=== PATIENT | female | born 1925 | race Caucasian/White ===

== ENCOUNTER 2016-04-02 15:14 | Emergency (ER) | payer OTHER, BC, MEDICARE ==
[~2016-04-02] VITALS: Ht 167.6 cm; Wt 74.8 kg
--- NOTE | 2016-04-02 16:54 | ED GENERAL ADULT ---
History of Present Illness General Chief Complaint: General Adult Stated Complaint: BP 207/78 SENT IN BY ENT Source: patient, family (DAUGHTER) Exam Limitations: no limitations Vital Signs & Intake/Output Vital Signs & Intake/Output Vital Signs Date Time Temp Pulse Resp B/P Pulse O2 O2 Flow FiO2 Ox Delivery Rate 04/02 2005 97.0 60 22 161/70 98 Room Air 04/02 1753 97.8 57 18 170/74 04/02 1750 170/74 ED Intake and Output 04/03 0000 04/02 1200 Intake Total Output Total Balance Patient 165 lb Weight Allergies Coded Allergies: No Known Allergies (04/02/16) Reconcile Medications Metoprolol Succinate 25 MG TAB 1 TAB PO DAILY HTN (Reported) Olmesartan Medoxomil (Benicar) 20 MG TABLET 1 TAB PO DAILY HTN (Reported) Triage Note: PT WAS REFERED TO THE ED FOR EVALUATION OF HYPERTENSION. SHE WAS BEING EVALUATED AT HER ENT FOR A FOLLOW UP WHEN THEY NOTED THE ELEVATED BP. Triage Nurses Notes Reviewed? yes HPI: Patient is an 82-year-old female referred to the emergency department by her ear nose and throat doctor for evaluation of elevated blood pressure. Patient was at a follow-up exam for a history of chronic tinnitus and dizziness when her blood pressure was noted to be between 200 and 210 systolic. Patient takes Benicar and metoprolol once a day for her hypertension. Patient last saw her plaster foreman approximately 2 weeks ago and reports that her blood pressure was in the 140s systolic. Patient reports that she has been compliant with her blood pressure medication regimen. Currently has mild tinnitus and had pressure which is consistent with her chronic symptoms, no change today. Patient denies blurred vision, numbness, weakness, chest pain, palpitations, dyspnea. Patient also complaining of right lower extremity pain and swelling. Patient fell approximately 7 months ago and has been having pain and swelling since. Pain and swelling primarily to the right knee but radiates from the right knee down to the right ankle both anteriorly and posteriorly. Patient has appointment tomorrow with her primary care doctor, Dr. Silverman for further evaluation of her knee pain and swelling. (MONY BAÑUELOS,ALBERTO) Past History Travel History Traveled to [place] past 21 day No Medical History Any Pertinent Medical History? see below for history Cardiovascular: hypertension, CARDIAC STENTS Gastrointestinal: IBS, SPASTIC COLON, DIVERTICULOSIS Musculoskeletal: ARTHRITIS Influenza Vaccine: 12/11/08 Surgical History Surgical History: non-contributory Psychosocial History Who do you live with Family Services at Home NONE What is your primary language American Tobacco Use: Never used Family History Hx Contributory? No (ALBERTO GALO) Review of Systems Review of Systems Constitutional: Denies: chills, fever. EENTM: Denies: blurred vision, visual changes. Respiratory: Denies: cough, short of breath. Cardiovascular: Denies: chest pain, palpitations, syncope. GI: Denies: abdominal pain, nausea, vomiting. Musculoskeletal: Reports: joint swelling (right knee). Denies: back pain. Skin: Reports: no symptoms. Neurological/Psychological: Reports: headache (mild head pressure). Denies: confusion, numbness. Hematologic/Endocrine: Denies: bruising, bleeding. Immunologic/Allergic: Denies: splenectomy. (ALBERTO GALO) Physical Exam Physical Exam General Appearance: well developed/nourished, alert, awake Head: atraumatic, normal appearance Eyes: Bilateral: normal appearance, PERRL. Ears, Nose, Throat: normal pharynx, normal ENT inspection, hearing grossly normal, normal TM's bilaterally Neck: normal inspection, supple, full range of motion Respiratory: normal breath sounds, no respiratory distress, lungs clear Cardiovascular: regular rate/rhythm (no murmur) Peripheral Pulses: 2+ dorsalis pedis (R), 2+ dorsalis pedis (L) Gastrointestinal: soft, non-tender Back: normal inspection, normal range of motion Extremities: moderate right knee swelling, mild tenderness. 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 Yes ASA ordered for poss ACS? No-ACS ruled out CVA/TIA Diagnosis: No Severe Sepsis Present: No Septic Shock Present: No (ALBERTO GALO) Progress Differential Diagnoses I considered the following diagnoses in my evaluation of the patient: Hypertension, hypertensive crisis, end organ dysfunction, osteoarthritis of the knee, DVT Plan of Care: Laboratory Tests 04/02/16 1741: Anion Gap 11, Estimated GFR > 60, BUN/Creatinine Ratio 15.7, Glucose 92, Calcium 9.5, Total Bilirubin 0.7, AST 23, ALT 32, Alkaline Phosphatase 81, Troponin I < 0.01, Total Protein 7.0, Albumin 4.4, Globulin 2.6, Albumin/Globulin Ratio 1.7, CBC w Diff NO MAN DIFF REQ, RBC 4.73, MCV 84.0, MCH 27.9, RDW 13.1, MPV 8.2, Gran % 64.8, Lymphocytes % 27.5, Monocytes % 6.4, Eosinophils % 0.8, Basophils % 0.5, Absolute Granulocytes 5.3, Absolute Lymphocytes 2.2, Absolute Monocytes 0.5 , Absolute Eosinophils 0.1, Absolute Basophils 0, PUBS MCHC 33.2 Manual blood pressure 170/74. No acute neurologic abnormalities on exam. No signs of end organ dysfunction on exam. 04/02/2016 6:12:18 PM: Discussed with and seen by Dr. Borden. 04/02/2016 6:26:03 PM: Patient resting comfortably. Results of labs and ultrasound discussed with patient. Patient has appointment with her primary doctor tomorrow. (MONY BAÑUELOS,ALBERTO) Diagnostic Imaging: Viewed by Me: Radiology Read, Ultrasound. Discussed w/RAD: Radiology Read, Ultrasound. Radiology Impression: PATIENT: JEFE FULLER PRESENT AGE: 89 PATIENT ACCOUNT NO: [id number] : [birth year] LOCATION: [facility] ORDERING PHYSICIAN: ALBERTO BAÑUELOS SERVICE DATE: 04/02/16 EXAM TYPE: US - US-UNILATERAL VENOUS DOPPLER EXAMINATION: US TRIPLEX LOWER EXTREMITY, RIGHT CLINICAL INFORMATION: Pain. Swelling. COMPARISON: None. TECHNIQUE: Color- flow triplex imaging with spectral analysis and compression Doppler were performed on the right lower extremity. FINDINGS: Respiratory variation, normal compression and augmented flow are noted throughout the lower extremity. The visualized common femoral vein, superficial femoral vein, profunda femoral vein, popliteal vein and midcalf peroneal and posterior tibial venous segments show no evidence of deep venous thrombosis. There is no Nichols's cyst. IMPRESSION: Normal triplex scan without evidence of deep venous thrombosis involving the right lower extremity. DICTATED BY: WESLEY SOLIS MD DATE/TIME DICTATED:04/02/161740 MANAGER EMERGENCY DEPARTMENT:DARYL DATE/TIME TRANSCRIBED:04/02/161740 CONFIDENTIAL, DO NOT COPY WITHOUT APPROPRIATE AUTHORIZATION. <Electronically signed in Other Vendor System> SIGNED BY: WESLEY SOLIS MD 04/02/161744 Initial ED EKG: sinus bradycardia 53 bpm, normal axis, left anterior fascicular block, no acute changes from previous ekg Prior EKG: unchanged (ALBERTO GALO) Departure Departure Time of Disposition: 1856 Disposition: HOME OR SELF CARE Condition: Stable Clinical Impression Primary Impression: Arthritis of knee Secondary Impressions: Hypertension Qualifiers: Hypertension type: essential hypertension Qualified Code: I10 - Essential (primary) hypertension Referrals: DANTE SILVERMAN MD (PCP/Family) Additional Instructions: Follow-up with her primary doctor tomorrow as previous as scheduled. Departure Forms: Customer Survey General Discharge Information (ALBERTO GALO) PA/CONCRETE BATCH PLANT OPERATOR Co-Sign Statement Statement: ED Attending supervision documentation- [x] I saw and evaluated the patient. I have also reviewed all the pertinent lab results and diagnostic results. I agree with the findings and the plan of care as documented in the PA's/CONCRETE BATCH PLANT OPERATOR's documentation. [] I have reviewed the ED Record and agree with the PA's/CONCRETE BATCH PLANT OPERATOR's documentation. [] Additions or exceptions (if any) to the PAs/CONCRETE BATCH PLANT OPERATOR's note and plan are summarized below: [] (PILAR BORDEN DO) Critical Care Note Critical Care Note Critical Care Time: non-applicable (ALBERTO GALO)
--- NOTE | 2016-04-02 17:45 | ULTRASOUND REPORT ---
EXAMINATION: US TRIPLEX LOWER EXTREMITY, RIGHT CLINICAL INFORMATION: Pain. Swelling. COMPARISON: None. TECHNIQUE: Color-flow triplex imaging with spectral analysis and compression Doppler were performed on the right lower extremity. FINDINGS: Respiratory variation, normal compression and augmented flow are noted throughout the lower extremity. The visualized common femoral vein, superficial femoral vein, profunda femoral vein, popliteal vein and midcalf peroneal and posterior tibial venous segments show no evidence of deep venous thrombosis. There is no Nichols's cyst. IMPRESSION: Normal triplex scan without evidence of deep venous thrombosis involving the right lower extremity.
[2016-04-02 17:49] LABS: ABSOLUTE BASOPHIL COUNT 0 /CUMM (0.0-0.2); ABSOLUTE EOSINOPHIL COUNT 0.1 /CUMM (0.0-0.7); ABSOLUTE GRANULOCYTE CT 5.3 /CUMM (1.4-6.5); ABSOLUTE LYMPH COUNT 2.2 /CUMM (1.2-3.4); ABSOLUTE MONOCYTE COUNT 0.5 /CUMM (0.10-0.60); BASOPHIL % 0.5 % (0.0-2.0); EOSINOPHIL % 0.8 % (0-5); GRANULOCYTE % 64.8 % (42.2-75.2); HEMATOCRIT 39.8 % (37-47); MEAN CORPUSCULAR HGB 27.9 PG (27.0-31.0); MEAN CORPUSCULAR HGB CONC 33.2 G/DL (33.0-37.0); MEAN PLATELET VOLUME 8.2 FL (7.4-10.4); PLATELET COUNT 190 /CUMM (130-400); RBC DISTRIBUTION WIDTH 13.1 % (11.5-14.5); RED BLOOD CELL CT 4.73 /CUMM (4.20-5.40); WHITE BLOOD CELL COUNT 8.2 /CUMM (4.8-10.8)
--- NOTE | 2016-04-02 18:46 | RADIOLOGY REPORT ---
EXAMINATION: XR KNEE, RIGHT CLINICAL INFORMATION: Pain and swelling of the knee. COMPARISON: X-rays of the right knee done 06/03/2014. Report only. TECHNIQUE: Four views of the right knee. FINDINGS: Reexamination shows the previously described tricompartmental osteoarthritis. Although this exam was not obtained weightbearing, there is significant narrowing of the lateral compartment. Marginal osteophytes are present. There is no fracture or joint effusion. Arterial vascular calcifications are seen in the popliteal fossa. IMPRESSION: Moderately advanced osteoarthritis.
[2016-04-02] MEDS ORDERED: BENICAR20 M1 PO (20:04)
[2016-04-02] MEDS ORDERED: METOPROLOL SUCC25 M1 PO (20:05)
[2016-04-02 20:06] VITALS: BP 161/70
== END 2016-04-02 18:58 ==
LOC: ERH 15:14
PROVIDERS: Physician Assistant
DX: I10 Essential (primary) hypertension (principal); M17.9 Osteoarthritis of knee, unspecified; M79.661 Pain in right lower leg; M25.561 Pain in right knee; M79.89 Other specified soft tissue disorders
CPT/HCPCS: 73562-RT; 93005; 93010

== ENCOUNTER 2017-06-20 15:42 | Emergency (ER) | payer OTHER, BC, MEDICARE ==
[~2017-06-20] VITALS: Ht 167.6 cm; Wt 70.8 kg
[~2017-06-20 15:42] MED LIST: BENICAR20 M1 PO; METOPROLOL SUCC25 M1 PO
--- NOTE | 2017-06-20 17:26 | CT SCAN REPORT ---
EXAMINATION: CT HEAD WITHOUT CONTRAST CLINICAL INFORMATION: Fall. Head laceration. COMPARISON: CT head 06/26/2011 TECHNIQUE: Contiguous axial imaging was performed from the skull base to vertex without intravenous administration of contrast. Coronal reformatted images performed at the CT scanner DLP: 607.51 mGy-cm FINDINGS: At the anterior falx there is a 5 mm hyperdensity, coronal image 64, axial image 34 (2). This is new since the exam of 06/26/2011. Favor this being a small extra-axial hemorrhage. No additional extra-axial collection, hemorrhage. There is no intracranial hemorrhage. No abnormal mass effect or midline shift is seen. Snow to white matter differentiation is well preserved. There is atrophy with prominence of the ventricles and the sulci and hypodensity of the periventricular white matter due to chronic small vessel ischemic disease. There is vascular calcifications of the internal carotid arteries bilaterally. The osseous structures and soft tissues are normal. The mastoid air cells and visualized portions of the paranasal sinuses are well aerated. IMPRESSION: Small hypodensity associated with the anterior falx new since the exam of 06/26/2011 consistent with a small extra-axial hemorrhage, along the anterior falx. This critical result was discussed with Dr. Sharma on 06/20/2017, 5:20 PM and it was ascertained that the content and urgency of the report was understood at the time of direct communication.
--- NOTE | 2017-06-20 17:49 | ED HEAD/FACIAL INJ COMPLAINT ---
History of Present Illness General Chief Complaint: Laceration Procedure Stated Complaint: LAC TO EYEBROW -LOC S/P FALL Source: patient, family, old records Exam Limitations: no limitations Vital Signs & Intake/Output Vital Signs & Intake/Output Vital Signs Date Time Temp Pulse Resp B/P B/P Pulse O2 O2 Flow FiO2 Mean Ox Delivery Rate 06/21 2127 98.6 58 18 197/79 100 Room Air 06/20 1909 97.8 62 18 159/96 98 Room Air 06/20 1547 97.0 65 20 186/60 99 Room Air Allergies Coded Allergies: No Known Allergies (04/02/16) Reconcile Medications Metoprolol Succinate 25 MG TAB 1 TAB PO DAILY HTN (Reported) Olmesartan Medoxomil (Benicar) 20 MG TABLET 1 TAB PO DAILY HTN (Reported) Triage Note: PT TO ED WITH DAUGHTER FOR LAC ABOVE LEFT EYE. PT HAD A TRIP AND FALL ONTO FACE ON CONCRETE, ABOUT 1340 TODAY. DENIES LOC. TAKES BABY ASA DAILY. UNKNOWN LAST TETANUS SHOT. Triage Nurses Notes Reviewed? yes Onset: Just prior to arrival Severity: moderate Location: frontal Method of Injury: direct blow, fall Loss of Consciousness: no loss of consciousness LMP (ages 10-50): post menopausal : No Patient currently breastfeeds: No HPI: Prior to admission patient slipped in her driveway and fell forward striking her forehead on the ground. She sustained bruising to the left eye and laceration to the left forehead. She denies fever chills nausea vomiting diarrhea abdominal pain chest pain shortness of breath headache dysuria rash change in motor sensory function change in bowel bladder habit loss of consciousness. (Uday Sharma MD) Past History Travel History Traveled to [place] past 21 day No Medical History Any Pertinent Medical History? see below for history Cardiovascular: hypertension, CARDIAC STENTS Gastrointestinal: IBS, SPASTIC COLON, DIVERTICULOSIS Musculoskeletal: ARTHRITIS Surgical History Surgical History: non-contributory Psychosocial History Who do you live with Family Services at Home NONE What is your primary language Finnish Tobacco Use: Never used ETOH Use: denies use Illicit Drug Use: denies illicit drug use Family History Hx Contributory? No (Uday Sharma MD) Review of Systems Review of Systems Constitutional: Reports: no symptoms. EENTM: Reports: no symptoms. Respiratory: Reports: no symptoms. Cardiovascular: Reports: no symptoms. GI: Reports: no symptoms. Genitourinary: Reports: no symptoms. Musculoskeletal: Reports: no symptoms. Skin: Reports: see HPI. Neurological/Psychological: Reports: no symptoms. Hematologic/Endocrine: Reports: no symptoms. Immunologic/Allergic: Reports: no symptoms. All Other Systems: Reviewed and Negative (Uday Sharma MD) Physical Exam Physical Exam General Appearance: well developed/nourished, mild distress Head: active bleeding, evidence of injury, contusions, ecchymosis (left periorbital), lacerations (forehead) Eyes: Bilateral: normal appearance, PERRL, EOMI. Ears, Nose, Throat: normal pharynx, normal ENT inspection, hearing grossly normal Neck: normal inspection, supple, full range of motion, no midline tenderness Respiratory: normal breath sounds, chest non-tender, no respiratory distress, quiet respiration Cardiovascular: regular rate/rhythm, normal peripheral pulses, norml femoral pulses equa Gastrointestinal: normal bowel sounds, soft, non-tender, no organomegaly Back: normal inspection, normal range of motion, no vertebral tenderness Extremities: normal inspection, normal capillary refill, normal range of motion, no edema Psychiatric: awake, alert, oriented x 3 Cranial Nerves: normal hearing, normal speech, PERRL Coordination/Gait: normal finger to nose, normal gait Motor/Sensory: no motor/sensory deficits Reflexes: 2+: bicep (R), bicep (L). Skin: intact, normal color, warm/dry Lymphatic: no anterior cervical sammi (Uday Sharma MD) Progress Differential Diagnosis: facial fracture, ICH Plan of Care: Orders Procedure Date/time Status TROPONIN LEVEL 06/21 1747 Complete PARTIAL THROMBOPLASTIN TIME 06/21 1747 Complete PROTHROMBIN TIME 06/21 1747 Complete COMPREHENSIVE METABOLIC PANEL 06/21 1747 Complete CBC WITHOUT DIFFERENTIAL 06/21 1747 Complete Laboratory Tests 06/20/17 1750: Anion Gap 11, Estimated GFR > 60, BUN/Creatinine Ratio 17.5, Glucose 98, Calcium 10.0, Total Bilirubin 0.7, AST 24, ALT 21, Alkaline Phosphatase 75, Troponin I < 0.01, Total Protein 7.3, Albumin 4.6, Globulin 2.7, Albumin/Globulin Ratio 1.7, PT 11.1, INR 1.02, APTT 24 L, CBC w Diff NO MAN DIFF REQ, RBC 4.90, MCV 84.3, MCH 27.8, MCHC 33.0, RDW 14.9 H, MPV 8.0, Gran % 75.2, Lymphocytes % 18.3 L, Monocytes % 5.8, Eosinophils % 0.4, Basophils % 0.3, Absolute Granulocytes 8.6 H, Absolute Lymphocytes 2.1, Absolute Monocytes 0.7 H, Absolute Eosinophils 0, Absolute Basophils 0 Diagnostic Imaging: Viewed by Me: CT Scan. Discussed w/RAD: CT Scan. Radiology Impression: Small hypodensity associated with the anterior falx new since the exam of 06/26/2011 consistent with a small extra-axial hemorrhage, along the anterior falx. Hand-Off Endorsed To: Estrada Campos MD Endorsed Time: 1899 Pending: CT (10PM) (Uday Sharma MD) Radiology Impression: PATIENT: JEFE FULLER PRESENT AGE: 89 PATIENT ACCOUNT NO: [id number] : [birth year] LOCATION: [facility] ORDERING PHYSICIAN: Uday Sharma MD SERVICE DATE: 06/20/17 EXAM TYPE: CAT - CT HEAD WO IV CONTRAST EXAMINATION: CT HEAD WITHOUT CONTRAST CLINICAL INFORMATION: Intracranial hemorrhage. Follow-up. COMPARISON: CT scan of the head 06/20/2017, 06/26/2011. TECHNIQUE: Contiguous axial imaging was performed from the skull base to vertex without intravenous administration of contrast. DLP: 619.51 mGy-cm FINDINGS: A small interhemispheric hyperdensity involving the anterior falx is redemonstrated. It has not changed from prior imaging. There is no intracranial mass effect or midline shift. Lateral and third ventricles are proportionate to the subarachnoid spaces. No hydrocephalus. Ill-defined foci of hypoattenuation are visualized within the periventricular white matter that most likely represent a chronic manifestation of small vessel ischemia. There is swelling of the left frontal scalp. The calvarium and skull base are intact. There are chronic postoperative changes of a left canal wall up mastoidectomy. Paranasal sinuses are well aerated. IMPRESSION: Stable examination. Swelling of the left frontal scalp is redemonstrated and the appearance of a small nonspecific interhemispheric hyperdensity involving the anterior falx is unchanged. No new finding. DICTATED BY: Claude Jackson MD DATE/TIME DICTATED :06/20/172207 REDUCING MACHINE OPERATOR:DARYL DATE/TIME TRANSCRIBED:06/20/172207 CONFIDENTIAL, DO NOT COPY WITHOUT APPROPRIATE AUTHORIZATION. < Electronically signed in Other Vendor System> SIGNED BY: Claude Jackson MD 06/20/172229 (Estrada Campos MD) Departure Departure Disposition: STILL A PATIENT Condition: Stable Clinical Impression Primary Impression: Head injury due to trauma Secondary Impressions: Laceration of forehead Referrals: Jl Silverman MD (PCP/Family) Additional Instructions: Suture removal 10 days. Departure Forms: Customer Survey General Discharge Information (Uday Sharma MD) Departure Comments 06/20/17, 22:37..... stable ct scan... pt is feeling well and feels comfortable going home... pt safe for discharge... discussed at length with family. (Beth FERNANDEZ,Estrada Bond) Procedures Laceration/Wound Repair Laceration/Wound Repair: Wound Location: face Wound's Depth, Shape: contused tissue, irregular Wound Length (cm): 3.5 Wound Explored: clean, no foreign body removed, irrigated extensively Irrigated w/ Saline (ccs): 250 Betadine Prep? No Anesthesia: 1% lidocaine Volume Anesthetic (ccs): 3 Wound Repaired With: sutures Suture Size/Type: 5:0, nylon Number of Sutures: 4 Layer Closure? No Sterile Dressing Applied: No Sling Applied? No (Uday Sharma MD)
[2017-06-20 18:01] LABS: ABSOLUTE BASOPHIL COUNT 0 /CUMM (0.0-0.2); ABSOLUTE GRANULOCYTE CT 8.6 /CUMM (1.4-6.5); ABSOLUTE MONOCYTE COUNT 0.7 /CUMM (0.10-0.60)
[2017-06-20 18:04] LABS: ABSOLUTE EOSINOPHIL COUNT 0 /CUMM (0.0-0.7); ABSOLUTE LYMPH COUNT 2.1 /CUMM (1.2-3.4); BASOPHIL % 0.3 % (0.0-2.0); EOSINOPHIL % 0.4 % (0-5); GRANULOCYTE % 75.2 % (42.2-75.2); HEMATOCRIT 41.3 % (37-47); MEAN CORPUSCULAR HGB 27.8 PG (27.0-31.0); MEAN CORPUSCULAR VOLUME 84.3 FL (81.0-99.0); PLATELET COUNT 239 /CUMM (130-400); RBC DISTRIBUTION WIDTH 14.9 % (11.5-14.5); WHITE BLOOD CELL COUNT 11.4 /CUMM (4.8-10.8)
[2017-06-20 18:10] LABS: PT 11.1 SEC (9.4-12.5); PTT 24 SEC (25-37)
[2017-06-20 21:28] VITALS: BP 197/79
--- NOTE | 2017-06-20 22:30 | CT SCAN REPORT ---
EXAMINATION: CT HEAD WITHOUT CONTRAST CLINICAL INFORMATION: Intracranial hemorrhage. Follow-up. COMPARISON: CT scan of the head 06/20/2017, 06/26/2011. TECHNIQUE: Contiguous axial imaging was performed from the skull base to vertex without intravenous administration of contrast. DLP: 619.51 mGy-cm FINDINGS: A small interhemispheric hyperdensity involving the anterior falx is redemonstrated. It has not changed from prior imaging. There is no intracranial mass effect or midline shift. Lateral and third ventricles are proportionate to the subarachnoid spaces. No hydrocephalus. Ill-defined foci of hypoattenuation are visualized within the periventricular white matter that most likely represent a chronic manifestation of small vessel ischemia. There is swelling of the left frontal scalp. The calvarium and skull base are intact. There are chronic postoperative changes of a left canal wall up mastoidectomy. Paranasal sinuses are well aerated. IMPRESSION: Stable examination. Swelling of the left frontal scalp is redemonstrated and the appearance of a small nonspecific interhemispheric hyperdensity involving the anterior falx is unchanged. No new finding.
== END 2017-06-20 22:39 ==
LOC: ERH 15:42
PROVIDERS: Emergency Medicine
DX: S09.90XA Unspecified injury of head, initial encounter (principal); S01.81XA Laceration without foreign body of other part of head, initial encounter; I10 Essential (primary) hypertension; W00.0XXA Fall on same level due to ice and snow, initial encounter; Y93.01 Activity, walking, marching and hiking; Y92.009 Unspecified place in unspecified non-institutional (private) residence as the place of occurrence of the external cause